=== PATIENT | female | born 2005 | race Caucasian/White ===

== ENCOUNTER 2023-04-07 02:10 | Emergency (ER) | payer MEDICAID, SELFPAY ==
[2023-04-07 02:14] VITALS: BP 158/110; PULSE 95; RESP 18; TEMP 36.4; O2SAT 99; BMI 31.3
--- NOTE | 2023-04-07 02:39 | USR_ITS ---
PROCEDURE INFORMATION: Exam: US Duplex Artery or Vein of the Abdominal and/or Reproductive Organs, Limited Exam date and time: 04/07/2023 3:55 AM Age: 17 years old Clinical indication: Lmp or gestational age (in weeks): 10w 1d; Antepartum complications; Bleeding; ; Additional info: 9 weeks gestation, vaginal bleeding, cramping/pain. Heavy vaginal bleeding for 3 hours. LMP 01/25/2023. TECHNIQUE: Imaging protocol: Real-time duplex ultrasound scan of the arterial or venous flow of the abdomen and/or reproductive organs, with color Doppler flow and spectral waveform analysis with image documentation. Exam focused on the region of clinical interest. Duplex exam was performed to evaluate for vascular conditions. COMPARISON: No relevant prior studies available. FINDINGS: No visible intra or extrauterine gestational sac. Endometrial echo complex measures up to about 13 mm and appears somewhat inhomogeneous. Some of this appearance may be secondary to blood/clot in the endometrial canal. Probable uterine fibroid, measuring 21 x 12 x 14 mm. No free pelvic fluid. Small cyst in the right ovary, measuring 11 x 9 x 11 mm. Maternal ovaries/adnexa otherwise appear essentially unremarkable. The right ovary measures 31 x 25 x 27 mm, estimated volume 11.1 cc. The left ovary measures 30 x 17 x 20 mm, estimated volume 5.3 cc. Ovarian blood flow was evaluated with color and spectral Doppler imaging. Arterial blood flow detected within each ovary. The sonographic appearance alone is nonspecific. The differential diagnosis includes; an early viable intrauterine less than four to five weeks gestation; a miscarriage; as well as an occult ectopic . Appropriate clinical follow up, including HCG level follow-up is recommended. The urinary bladder was not completely evaluated/imaged at this time. Endovaginal scanning provided better visualization/evaluation of the endometrium and adnexal regions, as discussed above. PROCEDURE INFORMATION: Exam: US First Trimester, Transabdominal and US , Transvaginal Exam date and time: 04/07/2023 3:55 AM Age: 17 years old Clinical indication: Lmp or gestational age (in weeks): 10w 1d; Antepartum complications; Bleeding; ; Additional info: 9 weeks gestation, vaginal bleeding, cramping/pain. Heavy vaginal bleeding for 3 hours. LMP 01/25/2023. LABS AND CLINICAL REPORTS: Serum Choriogonadotropin (HCG): 9488 mIU/mL Last menstrual period start date: 01/25/2023 TECHNIQUE: Imaging protocol: Real-time transabdominal obstetrical ultrasound of the maternal pelvis and a first trimester , less than 14 weeks 0 days, with image documentation. Transvaginal imaging was used for better evaluation of the fetus, adnexa, and/or cervix. COMPARISON: No relevant prior studies available. FINDINGS: No visible intra or extrauterine gestational sac. Endometrial echo complex measures up to about 13 mm and appears somewhat inhomogeneous. Some of this appearance may be secondary to blood/clot in the endometrial canal. Probable uterine fibroid, measuring 21 x 12 x 14 mm. No free pelvic fluid. Small cyst in the right ovary, measuring 11 x 9 x 11 mm. Maternal ovaries/adnexa otherwise appear essentially unremarkable. The right ovary measures 31 x 25 x 27 mm, estimated volume 11.1 cc. The left ovary measures 30 x 17 x 20 mm, estimated volume 5.3 cc. Ovarian blood flow was evaluated with color and spectral Doppler imaging. Arterial blood flow detected within each ovary. The sonographic appearance alone is nonspecific. The differential diagnosis includes; an early viable intrauterine less than four to five weeks gestation; a miscarriage; as well as an occult ectopic . Appropriate clinical follow up, including HCG level follow-up is recommended. The urinary bladder was not completely evaluated/imaged at this time. Endovaginal scanning provided better visualization/evaluation of the endometrium and adnexal regions, as discussed above. US/US OB limited [id number] IMPRESSION: 1. No visible intra or extrauterine gestational sac. 2. See above discussion and recommendations. 3. Apparent uterine fibroid, details above. 4. Small cyst in the right ovary, measuring 11 x 9 x 11 mm. 5. Blood flow detected in each ovary. 6. Other details discussed above.
--- NOTE | 2023-04-07 02:46 | ED_ITS ---
HPI - 2 General: Chief complaint: OB/Uterine Contractions Stated complaint: Vag bleeding, 9 weeks preg Time Seen by Provider: 04/07/23 02:17 History of Present Illness: Patient presents to the ER with complaints of vaginal bleeding and abdominal cramping. Patient is approximately 9 weeks . Patient is usually seen in [place] and has had ultrasounds confirming this. This is patient's first . Started out spotting yesterday and turned up heavier throughout the night. Related Data: : 1 Para: 0 Review of Systems 2 General: Reports: 10 or more systems reviewed and unremarkable except in HPI and below [facility] 2 Female Reproductive History: : 1 Physical Exam 2 Const: COMMON NORMALS: no acute distress, average body habitus, patient oriented x3, no limitations, healthy appearing, alert and well nourished HENMT: COMMON NORMALS: normocephalic, atraumatic, hearing grossly normal bilaterally, external ears normal, Normal external nose present, moist oral mucous membranes and oropharynx normal HEAD & SCALP: normocephalic and atraumatic NOSE: Normal external nose present EXTERNAL EAR: Yes external ears normal Neck/C-Spine: COMMON NORMALS: no JVD Chest: COMMONS NORMALS: normal inspection of the chest and normal palpation of entire chest wall Resp: COMMON NORMALS: normal respiratory effort, No retractions, No use of accessory muscles and clear to auscultation bilaterally AUSCULTATION: clear to auscultation bilaterally Cardio: COMMON NORMALS: no JVD, regular rate, regular rhythm, S1 normal heart sound present, S2 normal heart sound present, No gallops present (Cardio), No clicks present (Cardio), No murmurs present (Cardio) and No rub (Cardio) R ATE: regular rate RHYTHM: regular rhythm HEART SOUNDS: S1 normal heart sound present and S2 normal heart sound present GI: COMMON NORMALS: Normal to inspection, nondistended, normoactive bowel sounds present, Soft to palpation, No hepatosplenomegaly present and no masses; negative for non-tender (Tender to palpation suprapubically) PALPATION: Yes Soft to palpation and Yes No hepatosplenomegaly present Neuro: COMMON NORMALS: patient oriented x3 SENSORIUM/ORIENTATION: Yes alert Course 2 Vital Signs: Vital signs: Vital Signs Temperature 97.6 F 04/07/23 02:14 Pulse Rate 95 04/07/23 02:14 Respiratory Rate 18 04/07/23 02:14 Blood Pressure 158/110 04/07/23 02:14 Pulse Oximetry 99 04/07/23 02:14 Oxygen Delivery Me thod Room Air 04/07/23 02:14 MDM - OB/Uterine Contractions Medical Decision Making Patient had lab work done which was essentially unremarkable with a beta-hCG of approximately 9000. OB ultrasound did not see any visible intra or extrauterine gestational sac. With this and knowing that she had previous ultrasound of her uterus that showed a viable intrauterine back in [place]. It is justifiable patient had a spontaneous miscarriage when she had all of her bleeding. These results was detailed to the patient and I tried to answer other questions appropriately. Patient does not officially have an OB. We will refer patient to OB here through case management for follow-up. Patient be discharged home. Differential Diagnosis Unlikely normal delivery at term, hemorrhage, -induced hypertension, premature labor, pre-eclampsia or eclampsia Medical Records I reviewed the patient's medical records. Lab Data I reviewed the patient's lab results. 04/07/23 02:58 04/07/23 02:58 Radiology Impressions Obstetrics Ultrasound 04/07/23 02:39 IMPRESSION: 1. No visible intra or extrauterine gestational sac. 2. See above discussion and recommendations. 3. Apparent uterine fibroid, details above. 4. Small cyst in the right ovary, measuring 11 x 9 x 11 mm. 5. Blood flow detected in each ovary. 6. Other details discussed above. IMPRESSION: 1. No visible intra or extrauterine gestational sac. 2. See above discussion and recommendations. 3. Apparent uterine fibroid, details above. 4. Small cyst in the right ovary, measuring 11 x 9 x 11 mm. 5. Blood flow detected in each ovary. 6. Other details discussed above. Laboratory Results WBC 13.24 10^3/uL (4.5-13.0) H 04/07/23 02:58 RBC 4.48 10^6/uL (3.85-5.65) 04/07/23 02:58 Hgb 14.10 g/dL (12.4-14.8) 04/07/23 02:58 Hct 41.5 % (36-47) 04/07/23 02:58 MCV 92.6 fl (85-98) 04/07/23 02:58 MCH 31.5 pg (27-33) 04/07/23 02:58 MCHC 34.0 g/dL (30-55) 04/07/23 02:58 RDW 12.1 % (12.1-15.1) 04/07/23 02:58 Plt Count 230 10^3/cmm (157-399) 04/07/23 02:58 MPV 9.4 fL (7.4-10.4) 04/07/23 02:58 Neut % (Auto) 67.8 % 04/07/23 02:58 Lymph % (Auto) 25.8 % 04/07/23 02:58 [place] % (Auto) 4.8 % 04/07/23 02:58 Eos % (Auto) 1.0 % 04/07/23 02:58 Baso % (Auto) 0.2 % 04/07/23 02:58 Neut # (Auto) 8.97 10^3/uL (1.8-8.0) H 04/07/23 02:58 Lymph # (Auto) 3.4 10^3/uL (1.5-6.5) 04/07/23 02:58 [place] # (Auto) 0.6 10^3/uL (0.2-0.9) 04/07/23 02:58 Eos # (Auto) 0.1 10^3/uL (0.0-0.8) 04/07/23 02:58 Baso # (Auto) 0.0 10^3/uL (0.0-0.1) 04/07/23 02:58 Nucleated RBC % (auto) 0 % 04/07/23 02:58 Nucleated RBCs # 0.0 /100WBC 04/07/23 02:58 Sodium 139 mmol/L (136-145) 04/07/23 02:58 Potassium 3.7 mmol/L (3.5-5.1) 04/07/23 02:58 Chloride 104 mmol/L (98-107) 04/07/23 02:58 Carbon Dioxide 22 mmol/L (22-29) 04/07/23 02:58 Anion Gap 16.7 (5-19) 04/07/23 02:58 BUN 8 mg/dL (6-20) 04/07/23 02:58 Creatinine 0.5 mg/dL (0.5-0.9) 04/07/23 02:58 GFR Calculation 158.9 mL/min (90-130) H 04/07/23 02:58 Glucose 105 mg/dL (65-115) 04/07/23 02:58 Calculated Osmolality 287 mOsm/kg (285-295) 04/07/23 02:58 Calcium 9.3 mg/dL (8.5-10.5) 04/07/23 02:58 Total Bilirubin 0.2 mg/dL (0.15-1.2) 04/07/23 02:58 AST 19 U/L (0-32) 04/07/23 02:58 ALT 32 U/L (0-33) 04/07/23 02:58 Alkaline Phosphatase 51 U/L (35-105) 04/07/23 02:58 Total Protein 7.2 g/dL (6.6-8.7) 04/07/23 02:58 Albumin 4.4 g/dL (3.5-5.2) 04/07/23 02:58 Globulin 2.8 g/dL (1.3-4.6) 04/07/23 02:58 Ser , Semi-Qnt 9488.00 mIU/mL 04/07/23 02:58 Urine Color Red (Yellow) A 04/07/23 02:51 Urine Appearance Sl hazy (CLEAR) A 04/07/23 02:51 Urine pH 7 (5-7) 04/07/23 02:51 Ur Specific [place] 1.010 (1.005-1.030) 04/07/23 02:51 Urine Protein 1+ (Negative) H 04/07/23 02:51 Urine Glucose (UA) Norm (Normal) 04/07/23 02:51 Urine Ketones Negative (Negative) 04/07/23 02:51 Urine Blood 3+ (Negative) H 04/07/23 02:51 Urine Nitrate Negative (Negative) 04/07/23 02:51 Urine Bilirubin Neg (Negative) 04/07/23 02:51 Urine Urobilinogen Neg mg/dL (Negative) 04/07/23 02:51 Ur Leukocyte Esterase Trace (Negative) H 04/07/23 02:51 Urine RBC 40-50 /hpf (0-2) H 04/07/23 02:51 Urine WBC None /hpf (0-5) 04/07/23 02:51 Ur Squamous Epith Cells None /hpf (0-5) 04/07/23 02:51 Amorphous Sediment Not Reportable 04/07/23 02:51 Urine Bacteria None /hpf (NONE) 04/07/23 02:51 Blood Type B Positive 04/07/23 02:58 Rho(D) Type Rh positive 04/07/23 02:58 Antibody Screen Negative 04/07/23 02:58 All radiology interpretation(s) finalized by discharge Discharge Plan Discharge Patient Disposition: Home Clinical Impression: Spontaneous miscarriage Condition: Stable Discharge Orders: Discharge ED (Routine); Ordered 04/07/23 Ordered By: Nam Santoyo Patient Instructions: Miscarriage (ED) Activity Restrictions/Additional Instructions: Your case has been referred to case management, they will refer you to [facility]. They usually start the process about 8:00 in the morning. If you not have heard from them by 1 or 2 business days please feel free to give them a call. Coding Level of Care Code ED [employer] for Viraj De Anda
[2023-04-07 03:04] LABS: Basophils % 0.2 %; Eosinophils # 0.1 10^3/uL (0.0-0.8); Hematocrit 41.5 % (36-47); Lymphocytes # 3.4 10^3/uL (1.5-6.5); Lymphocytes % 25.8 %; Mean Corpuscular Hemoglobin 31.5 pg (27-33); Mean Corpuscular Volume 92.6 fl (85-98); Mean Platelet Volume 9.4 fL (7.4-10.4); Monocytes # 0.6 10^3/uL (0.2-0.9); Monocytes % 4.8 %; Neutrophils # 8.97 10^3/uL (1.8-8.0); Neutrophils % 67.8 %; Nucleated Red Blood Cells % 0 %; Platelet Count 230 10^3/cmm (157-399); Red Blood Count 4.48 10^6/uL (3.85-5.65); Red Cell Distribution Width 12.1 % (12.1-15.1); White Blood Count 13.24 10^3/uL (4.5-13.0)
[2023-04-07 03:17] LABS: Blood Urine 3+ (Negative); Glucose Urine UA Norm (Normal); Ketones Urine Negative (Negative); Protein Urine 1+ (Negative); Urine Appearance SL Hazy (CLEAR); Urine Color Red (Yellow); pH Urine 7 (5-7)
[2023-04-07 03:18] LABS: Add Urine Culture? Yes; Add Urine Microscopic? YES; Bilirubin Urine Neg (Negative); Leukocyte Esterase Urine Trace (Negative); Nitrate Urine Negative (Negative); RBC Urine 40-50 /hpf (0-2); Urobilinogen Urine Neg (Negative)
[2023-04-07 03:37] LABS: Alanine Aminotransferase 32 U/L (0-33); Albumin Level 4.4 g/dL (3.5-5.2); Alkaline Phosphatase 51 U/L (35-105); Anion Gap 16.7 (5-19); Aspartate Amino Transferase 19 U/L (0-32); Blood Urea Nitrogen 8 mg/dL (6-20); Calcium 9.3 mg/dL (8.5-10.5); Carbon Dioxide 22 mmol/L (22-29); Chloride 104 mmol/L (98-107); Creatinine Clr Calc Pharmacy 209.2632; Globulin 2.8 g/dL (1.3-4.6); Glomerular Filtration Rate 158.9 mL/min (90-130); Glucose 105 mg/dL (65-115); Osmolality Calculated 287 mOsm/kg (285-295); Potassium 3.7 mmol/L (3.5-5.1); Sodium 139 mmol/L (136-145); Total Bilirubin 0.2 mg/dL (0.15-1.2); Total Protein 7.2 g/dL (6.6-8.7)
[2023-04-07 06:42] VITALS: BP 139/95; PULSE 80; RESP 16; O2SAT 96
--- NOTE | 2023-04-07 07:37 | DCPLANNER ---
[facility] at 0737. Clinic to contact patient.
== END 2023-04-07 06:43 | disposition home or self-care (01) ==
PROVIDERS: Emergency Provider Emergency Medicine
DX: O03.9 Complete or unspecified spontaneous abortion without complication (principal); O34.81 Maternal care for other abnormalities of pelvic organs, first trimester; N83.201 Unspecified ovarian cyst, right side; Z3A.09 9 weeks gestation of pregnancy
CPT/HCPCS: 36415; 76815; 80053; 81001; 84702; 85025; 86850; 86900; 87086; 99284